=== PATIENT | female | born 1980 | race American Indian/Alaskan Native ===

== ENCOUNTER 2016-11-02 07:49 | Outpatient (CLI) | payer MEDICAID ==
[2016-11-02] MEDS ORDERED: LACTATED RINGERS 500 ML IV ONE (08:10)
[2016-11-02 09:31] LABS: Bilirubin,Urine NEG (Negative); Blood,Urine NEG (Negative); Ketones,Urine NEG (Negative); Leukocyte Esterase,Urine TR (Negative); Mucus,Urine 1+ /HPF; Nitrite,Urine NEG (Negative); Protein,Urine <15 mg/dL mg/dL (Negative); Urobilinogen,Urine < 2.0 mg/dL (<2.0)
--- NOTE | 2016-11-02 10:59 | Ultrasound Report ---
BIOPHYSICAL PROFILE: INDICATION: well being/decelerations. COMPARISON: None similar. TECHNIQUE: Transabdominal ultrasound with Doppler interrogation. 0 - breathing movements 2 - movements 2 - posture and tone 2 - Qualitative amniotic fluid volume 6 - TOTAL SCORE OF POSSIBLE 8 Heart Rate (bpm) 134
--- NOTE | 2016-11-02 11:01 | Ultrasound Report ---
OB LIMITED INDICATION: well being/decelerations. COMPARISON: None similar at this institution. TECHNIQUE: Transabdominal grayscale ultrasound with Doppler interrogation. Gestation: [place] Position: Cephalic Amniotic Fluid: WNL (7-24 cm) JUSTINO = 8.9 cm Heart Rate: 139 BPM
[2016-11-02 17:58] VITALS: BP 126/61
== END 2016-11-02 11:48 | disposition home or self-care (01) ==
LOC: TRG 07:49
PROVIDERS: ATTEND Obstetrics & Gynecology
DX: O76 Abnormality in fetal heart rate and rhythm complicating labor and delivery (principal); O62.0 Primary inadequate contractions; O47.03 False labor before 37 completed weeks of gestation, third trimester; Z3A.36 36 weeks gestation of pregnancy
CPT/HCPCS: 59025; 76815; 76819; 81001; 96360; J7120